=== PATIENT | male | born 1950 | race Two or more races ===

== ENCOUNTER → 2020-07-15 | Outpatient (CLI) | payer MEDICARE | END | disposition home or self-care (01) | LOC: RAD 09:36 | PROVIDERS: ATTEND Physician Assistant Medical | DX: N28.1 Cyst of kidney, acquired (principal); N32.89 Other specified disorders of bladder; N39.0 Urinary tract infection, site not specified; R59.9 Enlarged lymph nodes, unspecified | CPT/HCPCS: 74176 ==

== ENCOUNTER 2020-10-14 17:17 | Emergency (ER) | payer MEDICARE ==
[~2020-10-14] VITALS: Ht 182.9 cm; Wt 108.5 kg
[2020-10-14 19:14] VITALS: BP 130/82
[2020-10-14] MEDS ORDERED: SODIUM CHLORIDE FLUSH 10ML SYR IVF ONE (19:30)
[2020-10-14 19:38] LABS: BASOPHILS % (AUTO) 0 % (0-1); EOSINOPHILS % (AUTO) 2 % (1-7); LYMPHOCYTES % (AUTO) 24 % (22-44); MEAN CORPUSCULAR HEMOGLOBIN 30.7 pg (27.5-34.5); MEAN CORPUSCULAR HGB CONC 33.4 g/dL (33.2-36.2); MEAN PLATELET VOLUME 8.9 fL (7.4-10.4); MONOCYTES % (AUTO) 9 % (2-9); NEUTROPHILS % (AUTO) 64 % (42-75); PLATELET COUNT 172 x10^3/uL (130-400); RED BLOOD COUNT 5.11 x10^6/uL (4.38-5.82); RED CELL DISTRIBUTION WIDTH 14.1 % (9.4-14.8)
--- NOTE | 2020-10-14 19:42 | NUR ---
pt states he has been having bright red rectal bleeding starting since yesterday. pt states he is on xararalto. states bleeding is dripping at times, denies pain at this time. pt placed in hospital gown, erp at bedside
[2020-10-14 19:48] LABS: ALANINE AMINOTRANSFERASE 33 U/L (12-78); ALBUMIN 3.5 g/dL (3.4-5.0); ANION GAP 6 mmol/L (5-15); CALCIUM 8.8 mg/dL (8.5-10.1); CHLORIDE 107 mmol/L (98-107)
[2020-10-14 19:49] LABS: INTERNATIONAL NORMALIZED RATIO 1.07 (0.93-1.1); PROTHROMBIN TIME 11.4 Seconds (9.6-11.5)
[2020-10-14 19:50] LABS: ALKALINE PHOSPHATASE 69 U/L (45-117); BILIRUBIN,TOTAL 0.6 mg/dL (0.2-1.0); TOTAL PROTEIN 7.3 g/dL (6.4-8.2)
== END 2020-10-14 20:15 | disposition home or self-care (01) ==
LOC: ED 17:30
DX: K92.2 Gastrointestinal hemorrhage, unspecified (principal); R10.13 Epigastric pain; Z86.718 Personal history of other venous thrombosis and embolism
CPT/HCPCS: 36415; 80053; 85025; 85610; 85730; 99283